=== PATIENT | female | born 1985 | race Caucasian/White ===

== ENCOUNTER 2020-10-12 21:31 | Emergency (ER) | payer OTHER ==
[2020-10-12] MEDS ORDERED: Morphine 4 MG/ML VIAL ONE ×2 (22:09→22:21)
[2020-10-12] MEDS ORDERED: Ketorolac Tromethamine 30 MG/ML VIAL ONE (22:21)
== END 2020-10-12 22:39 | disposition home or self-care (01) ==
LOC: CSHERS 21:31
DX: R10.2 Pelvic and perineal pain (principal)
CPT/HCPCS: 96372; 99283; J1885; J2270

== ENCOUNTER 2021-07-24 09:35 | Emergency (ER) | payer BC, OTHER ==
[2021-07-24] MEDS ORDERED: Metoclopramide HCl 10 MG/2 ML VIAL ONE (10:31)
[2021-07-24] MEDS ORDERED: diphenhydrAMINE 50 MG/ML VIAL ONE (10:31)
[2021-07-24] MEDS ORDERED: Ondansetron PF 4 MG/2 ML Vial ONE (10:31)
[2021-07-24 10:45] LABS: #Eosinphils 0.1 10x3/uL (0.0-0.5); #Monocytes 0.4 10x3/uL (0.0-1.1); #Neutrophils 3.6 10x3/uL (1.5-8.4); %Basophils 0.5 % (0.0-2.0); %Eosinophils 1.4 % (0.0-6.0); %Lymphocytes 29.2 % (18.0-47.0); %Monocytes 6.4 % (0.0-10.0); %Neutrophils 62.3 % (40.0-75.0); Mean Corpuscular HGB CONC 34.5 g/dL (32.0-36.0); Mean Corpuscular Volume 86.9 fl (81.6-98.3); Mean Platelet Volume 10.2 fl (7.4-10.4); Platelet Count 242 10x3/uL (150-450); RBC Distribution Width 13.2 % (11.5-14.5); Red Blood Cell (RBC) Count 4.67 10x6/uL (3.90-5.03); White Blood Cell (WBC) Count 5.8 10x3/uL (3.5-10.5)
[2021-07-24 10:46] LABS: BHCG - Serum Negative (NEGATIVE); Pregs Control Background? CLEAR/WHITE (CLR/WHITE); Pregs Control Bar Appear? YES (CONTROL BAR)
[2021-07-24 10:53] LABS: ALT (SGPT) 20 U/L (8-55); AST (SGOT) 17 U/L (5-34); Albumin 4.5 g/dL (3.5-5.0); Alkaline Phosphatase 54 U/L (40-110); Anion Gap 12 mmol/L (10-20); BUN (Urea Nitrogen) 11 mg/dL (7.0-18.7); Bilirubin, Total 0.5 mg/dL (0.2-1.2); Calc. Creatinine Clearance 0 mL/min (70-130); Calcium 9.8 mg/dL (7.8-10.44); Carbon Dioxide 25 mmol/L (22-29); Chloride 106 mmol/L (98-107); Globulin 3.6 g/dL (2.4-3.5); Glucose 90 mg/dL (70-105); Protein, Total 8.1 g/dL (6.0-8.3); Sodium 139 mmol/L (136-145)
[2021-07-24 11:29] LABS: Bilirubin Neg (Negative); Blood, Urine Negative (Negative); Clarity Clear (Clear); Glucose, Urine (Dipstick) Normal (Negative); Ketone, Urine 5 mg/dL (Negative); Leukocyte Negative (Negative); Nitrite Negative (Negative); Protein, Urine (Dipstick) Negative (Neg-Trace); Specific Gravity, Urine 1.005 (1.002-1.036); Urobilinogen Normal mg/dL (Less than 2)
== END 2021-07-24 12:12 | disposition home or self-care (01) ==
LOC: CSHERS 09:35
DX: E86.0 Dehydration (principal); R55 Syncope and collapse; Z79.899 Other long term (current) drug therapy
CPT/HCPCS: 80053; 81003; 84703; 85025; 86850; 86900; 86901; 93005; 96365; 96375; J1200; J2405; J2765

== ENCOUNTER 2022-07-19 07:18 | Emergency (ER) | payer BC ==
[2022-07-19] MEDS ORDERED: Ondansetron PF 4 MG/2 ML Vial ONE (08:04)
[2022-07-19] MEDS ORDERED: Ketorolac Tromethamine 30 MG/ML VIAL ONE (08:04)
[2022-07-19 08:05] LABS: #Eosinphils 0.2 10x3/uL (0.0-0.5); #Monocytes 0.3 10x3/uL (0.0-1.1); #Neutrophils 2.1 10x3/uL (1.5-8.4); %Basophils 0.7 % (0.0-2.0); %Lymphocytes 41.5 % (18.0-47.0); %Monocytes 6.3 % (0.0-10.0); %Neutrophils 47.1 % (40.0-75.0); Hemoglobin 13.5 g/dL (12.0-15.5); Mean Corpuscular Hemoglobin 30.1 pg (27.0-33.0); Mean Corpuscular Volume 88.4 fl (81.6-98.3); Mean Platelet Volume 9.9 fl (7.4-10.4); Platelet Count 218 10x3/uL (150-450); RBC Distribution Width 12.2 % (11.5-14.5); Red Blood Cell (RBC) Count 4.49 10x6/uL (3.90-5.03); White Blood Cell (WBC) Count 4.5 10x3/uL (3.5-10.5)
[2022-07-19 08:16] LABS: ALT (SGPT) 32 U/L (8-55); AST (SGOT) 28 U/L (5-34); Albumin 4.1 g/dL (3.5-5.0); Alkaline Phosphatase 60 U/L (40-110); Anion Gap 13 mmol/L (10-20); BUN (Urea Nitrogen) 12 mg/dL (7.0-18.7); Bilirubin, Total 0.3 mg/dL (0.2-1.2); Calc. Creatinine Clearance 0 mL/min (70-130); Calcium 9.3 mg/dL (7.8-10.44); Carbon Dioxide 25 mmol/L (22-29); Chloride 107 mmol/L (98-107); Estimated GFR 104; Globulin 3.3 g/dL (2.4-3.5); Glucose 71 mg/dL (70-105); Potassium 4.2 mmol/L (3.5-5.1); Protein, Total 7.4 g/dL (6.0-8.3); Sodium 141 mmol/L (136-145)
[2022-07-19 08:22] LABS: BHCG - Serum Negative (NEGATIVE); Pregs Control Background? CLEAR/WHITE (CLR/WHITE); Pregs Control Bar Appear? YES (CONTROL BAR)
[2022-07-19] MEDS ORDERED: Iopamidol 300 61% 100 ML VIAL FS ONE (09:07)
[2022-07-19 09:56] LABS: Bilirubin Neg (Negative); Blood, Urine Negative (Negative); Clarity Clear (Clear); Glucose, Urine (Dipstick) Normal (Negative); Ketone, Urine Negative (Negative); Leukocyte Negative (Negative); Nitrite Negative (Negative); Protein, Urine (Dipstick) Negative (Neg-Trace); Urobilinogen Normal mg/dL (Less than 2)
[2022-07-19 09:59] LABS: Pregnancy Test - Urine (BHCG) Negative (Negative); Pregu Control Background? CLEAR/WHITE (CLR/WHITE); Pregu Control Bar Appear? YES (CONTROL BAR)
== END 2022-07-19 10:28 | disposition home or self-care (01) ==
LOC: CSHERS 07:18
DX: N83.202 Unspecified ovarian cyst, left side (principal)
CPT/HCPCS: 74177; 80053; 81003; 81025; 83690; 84703; 85025; 96374; 96375; J1885; J2405; Q9967